=== PATIENT | male | born 1970 | race Caucasian/White ===

== ENCOUNTER 2016-10-15 15:28 | Emergency (ER) | payer OTHER ==
[~2016-10-15] VITALS: Ht 157.5 cm; Wt 54.4 kg
[2016-10-15 15:41] VITALS: BP 128/86
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
[2016-10-15 16:08] VITALS: BP 128/86
== END 2016-10-15 16:29 ==
LOC: EDBD 15:28 → EMR 15:55
DX: Z02.89 Encounter for other administrative examinations (principal); G40.909 Epilepsy, unspecified, not intractable, without status epilepticus; J45.909 Unspecified asthma, uncomplicated; F10.10 Alcohol abuse, uncomplicated; Z88.6 Allergy status to analgesic agent
CPT/HCPCS: 99283

== ENCOUNTER 2017-04-22 16:40 | Emergency (ER) | payer MEDICAID, OTHER ==
[~2017-04-22] VITALS: Ht 182.9 cm; Wt 108.9 kg
[2017-04-22 17:35] VITALS: BP 104/61
[2017-04-22 18:30] VITALS: BP 111/52
[2017-04-22 19:21] VITALS: BP 114/76
[2017-04-22] MEDS ORDERED: ZOFRAN ODT4 MG ORAL (19:27)
[2017-04-22 19:55] VITALS: BP 114/76
--- NOTE | 2017-04-23 00:36 | Emergency Room Report ---
History of Present Illness General Chief Complaint: Overdose Source: Patient Present Illness HPI Is a 39-year-old male who presented after increased altered mental status. Patient was brought in by EMS. Patient was noted to be somnolent with abdomen his respirations and pinpoint pupils. He was given Narcan 2 mg intranasally. The patient was subsequently noted to have improvement in his mental status as well as respirations. The patient reported having some nausea. Allergies: Coded Allergies: HALOPERIDOL (Verified Allergy, Unknown, 10/15/16) MORPHINE (Verified Allergy, Unknown, 10/15/16) Patient History Past Medical History: see triage record Reviewed Nursing Documentation: PMH: Agreed, PSxH: Agreed Nursing Documentation-PMH Past Medical History: No Stated History Review of Systems All Other Systems: negative except mentioned in HPI Physical Exam Vital Signs Date Time Temp Pulse Resp B/P Pulse Ox O2 Delivery O2 Flow Rate FiO2 04/22/17 16:47 98.6 86 16 132/78 100 Room Air General Appearance: well appearing, no apparent distress Head: normocephalic, atraumatic Eyes: bilateral eye other - pinpoint pupils ENT: hearing grossly normal, normal voice Neck: full range of motion, supple Respiratory: no respiratory distress, speaking full sentences Cardiovascular #1: normal inspection, regular rate, rhythm Musculoskeletal: no calf tenderness Neurologic: normal gait Psychiatric: mood/affect normal Skin: no rash Medical Decision Making Diagnostic Impression: Primary Impression: Drug overdose Additional Impression: Heroin abuse ER Course Differential diagnosis included but was not limited to ischemic stroke, drug overdose , subarachnoid hemorrhage, hypoglycemia, spinal cord injury, neurodegenerative disorder, urinary tract infection, hypoxemia. Patient's benign exam and does not appear to require any further imaging or laboratory testing at this time. Patient was given Narcan by EMS. Patient was placed on security monitor. Patient was noted to have adequate respirations during time in emergency department. Patient was noted to have a gradual improvement in his mental status. The patient is advised to stop using drugs. He did not require further dose of Narcan prior to discharge. Last Vital Signs Date Time Temp Pulse Resp B/P Pulse Ox O2 Delivery O2 Flow Rate FiO2 04/22/17 19:55 98.6 89 13 114/76 93 Room Air Status: improved Disposition: HOME, SELF-CARE Condition: Stable Scripts Ondansetron Odt* (ZOFRAN ODT*) 4 Mg Tab.rapdis 4 MG ORAL Q6H Y for Nausea & Vomiting, #30 TAB 0 Refills Prov: Efraní Young 04/22/17 Referrals: NOT CHOSEN IPA/MD,REFERRING (PCP) Patient Instructions: Drug Overdose Efraín Young Apr 23, 2017 00:36
== END 2017-04-22 19:57 | disposition home or self-care (01) ==
LOC: EDUNIT# 16:40 → EDBD 16:40 → EMR 17:34
DX: T50.901A Poisoning by unspecified drugs, medicaments and biological substances, accidental (unintentional), initial encounter (principal); Y92.9 Unspecified place or not applicable; F11.10 Opioid abuse, uncomplicated; R11.0 Nausea; Z88.6 Allergy status to analgesic agent
CPT/HCPCS: 99283

== ENCOUNTER 2017-05-25 21:37 | Emergency (ER) | payer MEDICAID ==
[~2017-05-25] VITALS: Ht 172.7 cm; Wt 88.5 kg
[~2017-05-25 21:37] MED LIST: ZOFRAN ODT4 MG ORAL
[2017-05-25 21:40] VITALS: BP 144/86
[2017-05-25] MEDS ORDERED: Ketorolac 30mg Inj IV ONE (22:00)
[2017-05-25] MEDS ORDERED: LORazepam Inj 2mg/ml 1ml IV ONE (22:00)
--- NOTE | 2017-05-25 22:15 | Emergency Room Report ---
History of Present Illness General Chief Complaint: Nausea, Vomiting, and Diarrhea Source: Patient Present Illness HPI Patient reports that he has been nauseated vomiting for the past several days patient does consider himself an alcoholic However he reports that with the nausea vomiting is not able to drink any alcohol for the past 2 days Denies any fevers or chills patient also complains of low back pain Denies any dysuria frequency denies any fall or trauma Allergies: Coded Allergies: HALOPERIDOL (Verified Allergy, Unknown, 10/15/16) PENICILLINS (Verified Allergy, Unknown, 05/25/17) Patient History Past Medical History: see triage record Pertinent Family History: none Reviewed Nursing Documentation: PMH: Agreed, PSxH: Agreed Nursing Documentation-PMH Hx Asthma: Yes History Of Psychiatric Problem: Yes - PTSD, Bipolar, ADHD Hx Seizures: Yes Review of Systems All Other Systems: negative except mentioned in HPI Physical Exam Vital Signs Date Time Temp Pulse Resp B/P Pulse Ox O2 Delivery O2 Flow Rate FiO2 05/25/17 21:40 98.1 122 29 187/114 98 Room Air Sp02 EP Interpretation: reviewed, normal General Appearance: other - Appears mildly disheveled Head: normocephalic, atraumatic Eyes: bilateral eye EOMI, bilateral eye PERRL ENT: hearing grossly normal, normal pharynx, TMs + canals normal, uvula midline Neck: full range of motion, supple, no meningismus, no bony tend Respiratory: lungs clear, normal breath sounds, no rhonchi, no respiratory distress, no retraction, no accessory muscle use Cardiovascular #1: normal peripheral pulses, no edema, no gallop, no JVD, no murmur, tachycardia Gastrointestinal: normal bowel sounds, non tender, soft, no mass, no organomegaly, non-distended, no guarding, no hernia, no pulsatile mass, no rebound Genitourinary: no CVA tenderness Musculoskeletal: normal inspection Neurologic: oriented x3, responsive, program writer III-XII nml as tested, motor strength/ tone normal, sensory intact Psychiatric: mood/affect normal Skin: normal color, no rash, warm/dry, palpation normal Lymphatic: normal inspection, no adenopathy Medical Decision Making Diagnostic Impression: Primary Impression: Nausea, vomiting, and diarrhea Additional Impression: Alcohol withdrawal ER Course Given the patient's history and presentation Appears the patient is likely having signs of early alcohol withdrawal given the inability to drink alcohol Patient was provided further medication has done significantly better with IV hydration At this time stable for close outpatient followup Labs Test 05/25/17 22:00 White Blood Count 6.7 K/UL (4.8-10.8) Red Blood Count 4.41 M/UL (4.70-6.10) Hemoglobin 16.0 G/DL (14.2-18.0) Hematocrit 42.8 % (42.0-52.0) Mean Corpuscular Volume 97 FL (80-99) Mean Corpuscular Hemoglobin 36.2 PG (27.0-31.0) Mean Corpuscular Hemoglobin Concent 37.3 G/DL (32.0-36.0) Red Cell Distribution Width 13.0 % (11.6-14.8) Platelet Count 187 K/UL (150-450) Mean Platelet Volume 6.1 FL (6.5-10.1) Neutrophils (%) (Auto) 48.4 % (45.0-75.0) Lymphocytes (%) (Auto) 41.2 % (20.0-45.0) Monocytes (%) (Auto) 8.3 % (1.0-10.0) Eosinophils (%) (Auto) 0.8 % (0.0-3.0) Basophils (%) (Auto) 1.2 % (0.0-2.0) Sodium Level 135 mEQ/L (135-145) Potassium Level 3.9 mEQ/L (3.4-4.9) Chloride Level 96 mEQ/L (98-107) Carbon Dioxide Level 17 mEQ/L (20-30) Anion Gap 22 (5-15) Blood Urea Nitrogen 16 mg/dL (7-23) Creatinine 0.9 mg/dL (0.7-1.2) Estimat Glomerular Filtration Rate > 60 mL/min (>60) Glucose Level 95 mg/dL (74-106) Calcium Level 8.6 mg/dL (8.6-10.2) Total Bilirubin 0.7 mg/dL (0.0-1.2) Aspartate Amino Transf (AST/SGOT) 66 U/L (5-40) Alanine Aminotransferase (ALT/SGPT) 31 U/L (3-41) Alkaline Phosphatase 81 U/L (40-129) Total Protein 7.0 g/dL (6.6-8.7) Albumin 4.4 g/dL (3.5-5.2) Globulin 2.6 g/dL Albumin/Globulin Ratio 1.6 (1.0-2.7) Rhythm Strip Diag. Results EP Interpretation: yes Rate: 105 Rhythm: no PVC's, no ectopy, other - sinus tach Last Vital Signs Date Time Temp Pulse Resp B/P Pulse Ox O2 Delivery O2 Flow Rate FiO2 05/25/17 21:40 98.1 122 29 187/114 98 Room Air Status: improved Disposition: HOME, SELF-CARE Condition: Improved Scripts Famotidine (PEPCID AC) 20 Mg Tablet 20 MG PO DAILY, #20 TAB Prov: SHIVAM BECKETT D.O. 05/26/17 Lorazepam* (ATIVAN*) 1 Mg Tablet 1 MG ORAL THREE TIMES A DAY, #6 TAB Prov: SHIVAM BECKETT D.O. 05/26/17 Additional Instructions: Patient is provided with the discharge instructions notified to follow up with primary doctor in the next 2-3 days otherwise return to the er with any worsening symptoms. Please note that this report is being documented using [employer] technology. This can lead to erroneous entry secondary to incorrect interpretation by the dictating instrument. SHIVAM BECKETT D.O. May 25, 2017 22:15
[2017-05-25 22:41] LABS: BASOPHILS % (AUTO) 1.2 % (0.0-2.0); EOSINOPHILS % (AUTO) 0.8 % (0.0-3.0); LYMPHOCYTES % (AUTO) 41.2 % (20.0-45.0); MEAN CORPUSCULAR HEMOGLOBIN 36.2 PG (27.0-31.0); MEAN CORPUSCULAR HGB CONC 37.3 G/DL (32.0-36.0); MEAN CORPUSCULAR VOLUME 97 FL (80-99); MEAN PLATELET VOLUME 6.1 FL (6.5-10.1); MONOCYTES % (AUTO) 8.3 % (1.0-10.0); NEUTROPHILS % (AUTO) 48.4 % (45.0-75.0); PLATELET COUNT 187 K/UL (150-450); RED BLOOD COUNT 4.41 M/UL (4.70-6.10); WHITE BLOOD COUNT 6.7 K/UL (4.8-10.8)
[2017-05-25 22:50] LABS: ALANINE AMINOTRANSFERASE 31 U/L (3-41); ALBUMIN/GLOBULIN RATIO 1.6 (1.0-2.7); ANION GAP 22 (5-15); ASPARTATE AMINO TRANSFERASE 66 U/L (5-40); CALCIUM 8.6 mg/dL (8.6-10.2); CARBON DIOXIDE 17 mEQ/L (20-30); CHLORIDE 96 mEQ/L (98-107); CREATININE 0.9 mg/dL (0.7-1.2); GLOMERULAR FILTRATION RATE > 60 mL/min (>60); HEMOLYSIS 53; POTASSIUM 3.9 mEQ/L (3.4-4.9); SODIUM 135 mEQ/L (135-145)
[2017-05-26] MEDS ORDERED: ATIVAN1 MG ORAL (00:23)
[2017-05-26] MEDS ORDERED: PEPCID AC20 M2 PO (00:23)
[2017-05-26 00:37] VITALS: BP 129/78
[2017-05-26 00:45] VITALS: BP 129/78
== END 2017-05-26 00:45 | disposition home or self-care (01) ==
LOC: EDBD 21:37 → EMR 22:01
DX: R11.2 Nausea with vomiting, unspecified (principal); R19.7 Diarrhea, unspecified; F10.239 Alcohol dependence with withdrawal, unspecified; Z88.8 Allergy status to other drugs, medicaments and biological substances; Z88.0 Allergy status to penicillin; J45.909 Unspecified asthma, uncomplicated; F43.10 Post-traumatic stress disorder, unspecified; F31.9 Bipolar disorder, unspecified; F90.9 Attention-deficit hyperactivity disorder, unspecified type
CPT/HCPCS: 36415; 80053; 85025; 96374; 96375; 99284; J1885; J2405

== ENCOUNTER 2018-03-16 23:08 | Emergency (ER) | payer MEDICAID ==
[~2018-03-16] VITALS: Ht 172.7 cm; Wt 81.6 kg
[~2018-03-16 23:08] MED LIST changes: +ATIVAN1 MG ORAL; +PEPCID AC20 M2 PO
[2018-03-16 23:35] VITALS: BP 132/87
[2018-03-17 04:15] VITALS: BP 123/94
[2018-03-17 06:40] VITALS: BP 119/93
[2018-03-17 06:41] VITALS: BP 119/93
--- NOTE | 2018-03-17 23:44 | Emergency Room Report ---
History of Present Illness General Chief Complaint: General Complaint Source: Patient, EMS Present Illness HPI 48-year-old male presents ED for evaluation. Patient brought in by EMS for bizarre behavior. States that patient was running around on the streets today. Acting very agitated and combative. He denied drug use. Denied any suicidal or homicidal ideation. Denies hearing voices. No other aggravating relieving factors. Denies any other associated symptoms Allergies: Coded Allergies: HALOPERIDOL (Verified Allergy, Unknown, 10/15/16) PENICILLINS (Verified Allergy, Unknown, 05/25/17) VENLAFAXINE (Unverified Allergy, Unknown, 03/16/18) Patient History Past Medical History: asthma Past Surgical History: none Pertinent Family History: none Social History: Denies: smoking, alcohol use, drug use Immunizations: UTD Reviewed Nursing Documentation: PMH: Agreed; PSxH: Agreed Nursing Documentation-PMH Hx Asthma: Yes History Of Psychiatric Problem: Yes Hx Seizures: Yes Review of Systems All Other Systems: negative except mentioned in HPI Physical Exam Vital Signs Date Time Temp Pulse Resp B/P (MAP) Pulse Ox O2 Delivery O2 Flow Rate FiO2 03/16/18 23:00 98.9 100 18 132/87 98 Room Air 99.0 Sp02 EP Interpretation: reviewed, normal General Appearance: no apparent distress, alert, GCS 15, non-toxic Head: normocephalic, atraumatic Eyes: bilateral eye normal inspection, bilateral eye PERRL ENT: hearing grossly normal, normal pharynx, no angioedema, normal voice Neck: full range of motion, supple/symm/no masses Respiratory: chest non-tender, lungs clear, normal breath sounds, speaking full sentences Cardiovascular #1: regular rate, rhythm, no edema Cardiovascular #2: 2+ carotid (R), 2+ carotid (L), 2+ radial (R), 2+ radial (L) , 2+ dorsalis pedis (R), 2+ dorsalis pedis (L) Gastrointestinal: normal bowel sounds, non tender, soft, non-distended, no guarding, no rebound Rectal: deferred Genitourinary: normal inspection, no CVA tenderness Musculoskeletal: back normal, gait/station normal, normal range of motion, non- tender Neurologic: alert, oriented x3, responsive, motor strength/tone normal, sensory intact, speech normal Psychiatric: anxious Reflexes: 3+ bicep (R), 3+ bicep (L), 3+ tricep (R), 3+ tricep (L), 3+ knee (R) , 3+ knee (L) Skin: normal color, no rash, warm/dry, well hydrated Lymphatic: no adenopathy Medical Decision Making Diagnostic Impression: Primary Impression: Behavioral disorder ER Course Hospital Course 48-year-old male presents ED with agitated behavior on the streets Clinical course Patient placed on stretcher. Given that patient is able to provide an adequate history, I see no need to check blood work or place an IV. Patient asked to sleep. My assessment shows no evidence of SI/HI requiring psychiatric evaluation. Patient allowed to rest in now awake alert oriented x3. ambulating without difficulty. patient has prior history of substance abuse Diagnosis - behavioral disorder stable and discharged to home. Followup with PMD. Return to ED if symptoms recur or worsen Last Vital Signs Date Time Temp Pulse Resp B/P (MAP) Pulse Ox O2 Delivery O2 Flow Rate FiO2 03/17/18 06:41 98.0 88 16 119/93 97 Room Air 98.0 Status: improved Disposition: HOME, SELF-CARE Condition: Stable Patient Instructions: Reno Wilkerson MD Mar 17, 2018 23:44
== END 2018-03-17 06:41 | disposition home or self-care (01) ==
LOC: EDBD 23:08 → EMR 23:31
DX: F91.9 Conduct disorder, unspecified (principal); J45.909 Unspecified asthma, uncomplicated; Z88.0 Allergy status to penicillin; Z88.8 Allergy status to other drugs, medicaments and biological substances
CPT/HCPCS: 99284

== ENCOUNTER 2018-09-19 00:25 | Emergency (ER) | payer MEDICAID ==
[~2018-09-19] VITALS: Ht 172.7 cm; Wt 77.1 kg
[~2018-09-19 00:25] MED LIST changes: +BUPROPION XL300 MG ORAL; +BUSPAR10 MG ORAL; +CATAPRES0.3 MG ORAL; +QUETIAPINE FUM100 MG ORAL
[2018-09-19 00:30] VITALS: BP 140/90
[2018-09-19] MEDS ORDERED: Methocarbamol 750mg tab ORAL ONE (01:15)
[2018-09-19] MEDS ORDERED: BusPIRone 10mg Tab ORAL ONE (01:15)
[2018-09-19] MEDS ORDERED: Ketorolac 30mg Inj IM ONE (01:15)
[2018-09-19] MEDS ORDERED: BuPROPion XL 150mg tab ORAL ONE (01:15)
[2018-09-19 01:21] LABS: BASOPHILS % (AUTO) 1.5 % (0.0-2.0); HEMATOCRIT 41.1 % (42.0-52.0); HEMOGLOBIN 13.6 G/DL (14.2-18.0); LYMPHOCYTES % (AUTO) 28.8 % (20.0-45.0); MEAN CORPUSCULAR VOLUME 91 FL (80-99); MONOCYTES % (AUTO) 17.6 % (1.0-10.0); NEUTROPHILS % (AUTO) 50.1 % (45.0-75.0); PLATELET COUNT 285 K/UL (150-450); RED BLOOD COUNT 4.51 M/UL (4.70-6.10); RED CELL DISTRIBUTION WIDTH 12.7 % (11.6-14.8); WHITE BLOOD COUNT 6.8 K/UL (4.8-10.8)
[2018-09-19 01:31] LABS: ANION GAP 7 mmol/L (5-15); BLOOD UREA NITROGEN 17 mg/dL (7-18); CALCIUM 9.6 MG/DL (8.5-10.1); CARBON DIOXIDE 30 MMOL/L (21-32); CHLORIDE 105 MMOL/L (98-107); CREATININE 1.1 MG/DL (0.55-1.30); POTASSIUM 4.2 MMOL/L (3.5-5.1); SODIUM 142 MMOL/L (136-145)
[2018-09-19 01:36] LABS: ALANINE AMINOTRANSFERASE 42 U/L (12-78); ALBUMIN 4.6 G/DL (3.4-5.0); ALBUMIN/GLOBULIN RATIO 1.1 (1.0-2.7); ALKALINE PHOSPHATASE 97 U/L (46-116); ASPARTATE AMINO TRANSFERASE 55 U/L (15-37); BILIRUBIN,TOTAL 0.5 MG/DL (0.2-1.0)
[2018-09-19] MEDS ORDERED: BuPROPion SR 150mg tab ORAL ONE (02:32)
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
[2018-09-19 02:35] VITALS: BP 131/87
[2018-09-19 04:29] VITALS: BP 128/83
[2018-09-19 06:27] VITALS: BP 125/79
[2018-09-19 07:26] VITALS: BP 121/70
[2018-09-19 09:15] VITALS: BP 132/68
== END 2018-09-19 09:15 ==
LOC: EDBD 00:25 → EMR 01:04
DX: F91.9 Conduct disorder, unspecified (principal); Z88.0 Allergy status to penicillin; Z88.8 Allergy status to other drugs, medicaments and biological substances; G40.909 Epilepsy, unspecified, not intractable, without status epilepticus; R52 Pain, unspecified
CPT/HCPCS: 36415; 80053; 80307; 80329; 85025; 99291

== ENCOUNTER 2019-10-12 00:03 | Emergency (ER) | payer MEDICAID ==
[~2019-10-12] VITALS: Ht 170.2 cm; Wt 72.6 kg
[2019-10-12 02:05] VITALS: BP 151/95
[2019-10-12] MEDS ORDERED: HYDROmorphone 1mg/ml Carpuject IVP ONE (02:30)
[2019-10-12] MEDS ORDERED: LORazepam Inj 2mg/ml 1ml IV ONE (02:30)
[2019-10-12] MEDS ORDERED: chlordiazePOXIDE 25mg Cap ORAL ONE (02:30)
[2019-10-12] MEDS ORDERED: levETIRAcetam 1,000mg/NS100ml 100 ML IVPB ONE (02:30)
--- NOTE | 2019-10-12 04:04 | Emergency Room Report ---
History of Present Illness General Chief Complaint: Pain Source: Patient Present Illness HPI This is a 49-year-old male with history of substance abuse and alcohol abuse. Also history of seizure and psychiatric history. He presents with chief complaint of diffuse body pain. He said he has a history of herniated disc and stenosis from MRI. He presents with body pain is 10 out of 10. Worse in a week now. He said he had a seizure yesterday and it made it worse. No fever chills no trauma. No incontinence of bowel or urine. Allergies: Coded Allergies: HALOPERIDOL (Verified Allergy, Unknown, 10/15/16) PENICILLINS (Verified Allergy, Unknown, 05/25/17) VENLAFAXINE (Unverified Allergy, Unknown, 03/16/18) Patient History Past Medical History: see triage record, old chart reviewed Past Surgical History: other Pertinent Family History: none Social History: Denies: smoking Immunizations: other Reviewed Nursing Documentation: PMH: Agreed; PSxH: Agreed Nursing Documentation-PMH Past Medical History: No History, Except For Hx Asthma: Yes Hx Seizures: Yes - grand mal seizures Review of Systems Eye: Denies: eye pain, blurred vision ENT: Denies: ear pain, nose congestion, throat swelling Respiratory: Denies: cough, shortness of breath Cardiovascular: Denies: chest pain, palpitations Gastrointestinal: Denies: abdominal pain, diarrhea, nausea, vomiting Musculoskeletal: Reports: back pain; Denies: joint pain Skin: Denies: rash Neurological: Denies: headache, numbness Endocrine: Denies: increased thirst, increased urine Hematologic/Lymphatic: Denies: easy bruising All Other Systems: negative except mentioned in HPI Physical Exam Vital Signs Date Time Temp Pulse Resp B/P (MAP) Pulse Ox O2 Delivery O2 Flow Rate FiO2 10/12/19 00:38 98.8 100 12 151/95 (113) 97 Room Air Vitals with high blood pressure Sp02 EP Interpretation: reviewed, normal General Appearance: well appearing, no apparent distress, alert Head: normocephalic, atraumatic Eyes: bilateral eye PERRL, bilateral eye EOMI ENT: hearing grossly normal, normal pharynx Neck: full range of motion, supple, no meningismus Respiratory: chest non-tender, lungs clear, normal breath sounds Cardiovascular #1: regular rate, rhythm, no murmur Gastrointestinal: normal bowel sounds, non tender, no mass, no organomegaly, no bruit, non-distended Musculoskeletal: back normal, normal range of motion, gait/station normal Neurologic: alert, motor strength/tone normal, other - Tremulous, mild Psychiatric: mood/affect normal Medical Decision Making Diagnostic Impression: Primary Impression: Behavioral disorder Additional Impressions: Pain Alcohol withdrawal Qualified Codes: F10.230 - Alcohol dependence with withdrawal, uncomplicated Methamphetamine abuse ER Course Patient presents with chronic pain from substance abuse. Also mild alcohol withdrawal. I gave her Librium Ativan here. Pain is better. Will discharge home. No criteria for 5150. This patient is a chronic risk of self injury due to poor impulse control, limited coping skills, and judgment intermittently impaired by intoxication. I believe that the available clinical evidence to suggest that these characteristics derived primarily from personality disorder and are likely very stable over time. Hospitalization would likely attenuate risk of self-harm only during residential period, without lasting risk reduction. Serious self-harm , while possible, would likely be inadvertent, and because of impulsivity, and foreseeable. For these reasons, I do not believe hospitalization would provide meaningful reduction in risk of self-harm. Rhythm Strip Diag. Results EP Interpretation: yes Rate: 110 Rhythm: NSR, no PVC's, no ectopy Last Vital Signs Date Time Temp Pulse Resp B/P (MAP) Pulse Ox O2 Delivery O2 Flow Rate FiO2 10/12/19 03:10 98.8 10/12/19 02:05 105 12 151/95 97 Room Air Status: improved Disposition: HOME, SELF-CARE Condition: Stable Scripts Chlordiazepoxide (Chlordiazepoxide HCl) 25 Mg Capsule 25 MG ORAL THREE TIMES A DAY, #15 CAP 0 Refills Prov: Nickolas Lundberg MD 10/12/19 Hydrocodone Bit/Acetaminophen 5-325* (NORCO 5-325*) 1 Each Tablet 1 TAB ORAL Q6H PRN for For Pain, #20 TAB 0 Refills Prov: Nickolas Lundberg MD 10/12/19 Referrals: NOT CHOSEN [facility]/,REFERRING (PCP) Additional Instructions: Abstain from alcohol and drugs. Follow-up with your doctor in rehab in 7 days. Return if symptoms worsen. Nickolas Lundberg MD Oct 12, 2019 04:04
[2019-10-12 04:07] VITALS: BP 153/89
[2019-10-12] MEDS ORDERED: NORCO 5-325 TA1 EACH ORAL (04:08)
[2019-10-12] MEDS ORDERED: LIBRIUM25 MG ORAL (04:08)
[2019-10-12] MEDS ORDERED: KEPPRA500 M4 ORAL (04:10)
[2019-10-12] MEDS ORDERED: BUSPAR10 MG ORAL (04:10)
[2019-10-12 06:00] VITALS: BP 148/97
== END 2019-10-12 06:00 | disposition home or self-care (01) ==
LOC: EDBD 00:03 → EMR 02:12
DX: F91.9 Conduct disorder, unspecified (principal); F10.230 Alcohol dependence with withdrawal, uncomplicated; F15.10 Other stimulant abuse, uncomplicated; Z88.0 Allergy status to penicillin; G40.909 Epilepsy, unspecified, not intractable, without status epilepticus
CPT/HCPCS: 80307; 96374; 96375; J1170; J1953; Z7502; 99284

== ENCOUNTER 2019-10-12 11:05 | Emergency (ER) | payer MEDICAID ==
[~2019-10-12] VITALS: Ht 172.7 cm; Wt 113.4 kg
[~2019-10-12 11:05] MED LIST changes: +KEPPRA500 M4 ORAL; +LIBRIUM25 MG ORAL; +NORCO 5-325 TA1 EACH ORAL
[2019-10-12] MEDS ORDERED: LORazepam 1mg tab ORAL ONE (11:30)
[2019-10-12] MEDS: Ketorolac 30mg Inj IM ONE ×2 (11:31→11:40)
[2019-10-12 11:41] VITALS: BP 143/91
[2019-10-12 12:24] VITALS: BP 139/92
--- NOTE | 2019-10-12 12:45 | Emergency Room Report ---
History of Present Illness General Chief Complaint: Back Pain-No Injury Source: Patient Present Illness HPI Patient has history of psychiatric illness. Patient was actually seen in emergency department last night and discharged. But he stayed in the ER lobby. He checked back in complaining of back pain stating that he wants injections of narcotics. He denies any fever nausea vomiting diarrhea chills. He denies any suicidal homicidal ideation. States that he feels anxious. No other complaints are noted. Patient states that he knows where different psychiatric facilities are and he knows where to go. No other modifying factors. No other associated signs and symptoms. No other complaints were noted. Allergies: Coded Allergies: HALOPERIDOL (Verified Allergy, Unknown, 10/15/16) PENICILLINS (Verified Allergy, Unknown, 05/25/17) VENLAFAXINE (Unverified Allergy, Unknown, 03/16/18) Patient History Past Medical History: asthma, seizures Past Surgical History: none Pertinent Family History: none Social History: Reports: alcohol use, drug use Reviewed Nursing Documentation: PMH: Agreed; PSxH: Agreed Nursing Documentation-PMH Past Medical History: No History, Except For Hx Asthma: Yes Hx Seizures: Yes Review of Systems All Other Systems: negative except mentioned in HPI Physical Exam Vital Signs Date Time Temp Pulse Resp B/P (MAP) Pulse Ox O2 Delivery O2 Flow Rate FiO2 10/12/19 11:08 98.6 106 20 143/91 (108) 98 Room Air Sp02 EP Interpretation: reviewed, normal General Appearance: normal inspection, well appearing, no apparent distress, alert Head: atraumatic Eyes: bilateral eye normal inspection ENT: normal ENT inspection, hearing grossly normal, normal voice Neck: normal inspection, full range of motion, supple, no bony tend Respiratory: normal inspection, lungs clear, normal breath sounds, no respiratory distress, no retraction, no wheezing Cardiovascular #1: regular rate, rhythm, no edema Gastrointestinal: normal inspection, normal bowel sounds, non tender, soft, no guarding, no hernia Genitourinary: no CVA tenderness Musculoskeletal: normal inspection, back normal, normal range of motion Neurologic: alert, responsive, speech normal, normal inspection Psychiatric: normal inspection, anxious, other - Decreased insight Skin: no rash Medical Decision Making Diagnostic Impression: Primary Impression: Back pain Additional Impression: Behavioral disorder ER Course Patient presents emergency department today complaint back pain. Differential considerations include back strain, drug-seeking behavior, anxiety, radiculopathy. Patient's exam is benign. There is no evidence of any cauda equina or neurologic involvement. Patient pain is chronic. Given that patient has a history of abuse of drugs and alcohol I felt that it was ill advised to provide patient with narcotic pain medication or large amount of pain medication injections. Patient was offered Toradol. Given the patient is not suicidal homicidal is can be discharged he is advised to follow-up with outpatient psychiatry. Also recommend outpatient primary care physician follow- up. Return to ER for any worsening symptoms and as needed. Last Vital Signs Date Time Temp Pulse Resp B/P (MAP) Pulse Ox O2 Delivery O2 Flow Rate FiO2 10/12/19 12:24 98.6 99 20 139/92 98 Room Air Status: improved Disposition: HOME, SELF-CARE Condition: Stable Referrals: NOT CHOSEN [facility]/,REFERRING (PCP) Patient Instructions: Back Pain, Adult Manuel Avila MD Oct 12, 2019 12:45
== END 2019-10-12 12:30 | disposition home or self-care (01) ==
LOC: EMR 11:30
DX: M54.9 Dorsalgia, unspecified (principal); F91.9 Conduct disorder, unspecified; Z88.0 Allergy status to penicillin; G40.909 Epilepsy, unspecified, not intractable, without status epilepticus
CPT/HCPCS: J1885; Z7502; 99282